=== PATIENT | female | born 1995 | race American Indian/Alaskan Native ===

== ENCOUNTER 2016-12-03 21:03 | Inpatient (IN) | payer OTHER ==
[2016-12-03 22:10] LABS: Basophils % (Auto) 0.6 % (0.0-1.8); Eosinophils % (Auto) 1.1 % (0.0-4.3); Hematocrit 41.7 % (30.3-42.9); Hemoglobin 13.5 gm/dl (10.1-14.3); Mean Corpuscular HGB Conc 32 % (30-34); Mean Corpuscular Hemoglobin 29 pg (28-32); Mean Corpuscular Volume 89 fl (79-97); Platelet Count 243 K/mm3 (140-440)
[2016-12-03 22:24] LABS: Anion Gap 19 mmol/L; Blood Urea Nitrogen 10 mg/dL (7-17); Calcium 9.1 mg/dL (8.4-10.2); Carbon Dioxide 27 mmol/L (22-30); Chloride 98.2 mmol/L (98-107); Glucose 105 mg/dL (65-100); Potassium 3.9 mmol/L (3.6-5.0); Sodium 140 mmol/L (137-145)
--- NOTE | 2016-12-03 23:12 | Cat Scan Report ---
FINAL REPORT PROCEDURE: CT HEAD/BRAIN WO CON TECHNIQUE: Computerized tomography of the head was performed without contrast material. HISTORY: Headache/confusion COMPARISON: No prior studies are available for comparison. FINDINGS: Skull and scalp: Normal. Paranasal sinuses: Normal. Ventricles and subarachnoid spaces: Normal. Cerebrum: No evidence of hemorrhage, acute infarction or mass . Cerebellum and brainstem: No evidence of hemorrhage, acute infarction or mass. Vasculature: Normal. Comments: None. IMPRESSION: Normal Examination
[2016-12-04 00:24] LABS: Bacteria,Urine 1+ /HPF (Negative); Bilirubin,Urine NEG (Negative); Blood,Urine NEG (Negative); Ketones,Urine TR mg/dL (Negative); Leukocyte Esterase,Urine MOD (Negative); Mucus,Urine 3+ /HPF; Nitrite,Urine NEG (Negative); Urobilinogen,Urine < 2.0 mg/dL (<2.0)
[2016-12-04] MEDS ORDERED: FIORICET PO ONE (01:13)
[2016-12-04 01:16] LABS: Urine Drugs of Abuse Note Disclamer
[2016-12-04] MEDS ORDERED: ZOFRAN IV ONE (01:21)
--- NOTE | 2016-12-04 01:21 | Emergency Department Report ---
HPI - General Chief Complaint: Headache Time Seen by Provider: 12/04/16 01:03 - HPI HPI: Room 5 The patient is a 21-year-old female presenting with a chief complaint of headache and altered mental status. The patient is very slow to respond and appears disorganized. The patient admits to fever chills headaches nausea and vomiting. Patient does not offer many details about her symptom was states they 've been present for several days. Patient denies any psychiatric history or illicit drug use. The patient gives her headache score of 20/10. The patient is oriented to self, place and date but is extremely slow in her responses. Location: Head, mental status Duration: [see above] Quality: Headache Severity: 20/10 Modifying factors: [see above] Context: [see above] Mode of transportation: The patient states she drove herself to the emergency department ED Past Medical Hx - Past Medical History Previous Medical History?: No - Surgical History Past Surgical History?: No - Family History Family history: no significant - Social History Smoking Status: Never Smoker Substance Use Type: None (denies illicit drug use) - Medications Home Medications: Home Medications Medication Instructions Recorded Confirmed Last Taken Type No Known Home Medications [No 12/04/16 12/04/16 Unknown History Reported Home Medications] ED Review of Systems ROS: Stated complaint: HEADACHE Other details as noted in HPI Comment: All other systems reviewed and negative Constitutional: chills, fever (subjective) Eyes: denies: eye pain, eye discharge, vision change ENT: denies: ear pain, throat pain Respiratory: denies: cough, shortness of breath, wheezing Cardiovascular: denies: chest pain, palpitations Endocrine: no symptoms reported Gastrointestinal: nausea, vomiting Genitourinary: denies: urgency, dysuria, discharge Musculoskeletal: denies: back pain, joint swelling, arthralgia Skin: denies: rash, lesions Neurological: headache Psychiatric: denies: anxiety, depression Hematological/Lymphatic: denies: easy bleeding, easy bruising Physical Exam - Physical Exam Vital Signs: Vital Signs 12/03/16 12/03/16 21:19 23:57 Temperature 98.1 F Pulse Rate 76 69 Respiratory 18 16 Rate Blood Pressure 129/86 Blood Pressure 111/70 [Left] O2 Sat by Pulse 97 98 Oximetry Physical Exam: GENERAL: The patient is well-developed well-nourished female lying on stretcher not appearing to be in acute distress but slow to respond. [] HEENT: Normocephalic. Atraumatic. Extraocular motions are intact. Patient has moist mucous membranes. NECK: Supple. No meningitic signs are noted. Trachea midline. There is no nuchal rigidity CHEST/LUNGS: Clear to auscultation. There is no respiratory distress noted. HEART/CARDIOVASCULAR: Regular. There is no tachycardia. There is no gallop rub or murmur. ABDOMEN: Abdomen is soft, nontender. Patient has normal bowel sounds. There is no abdominal distention. SKIN: There is no rash. There is no edema. There is no diaphoresis. NEURO: The patient is awake and oriented but slow to respond. The patient is cooperative. The patient has no focal neurologic deficits. The patient has normal speech but delayed in her responses. Cranial nerves II through XII grossly intact, no drift, stove installer equal bilaterally. Moves all extremities well. Normal sensation throughout MUSCULOSKELETAL: There is no evidence of acute injury. ED Course Vital Signs 12/03/16 12/03/16 21:19 23:57 Temperature 98.1 F Pulse Rate 76 69 Respiratory 18 16 Rate Blood Pressure 129/86 Blood Pressure 111/70 [Left] O2 Sat by Pulse 97 98 Oximetry ED Medical Decision Making - Lab Data Result diagrams: 12/03/16 21:51 12/03/16 21:51 Laboratory Tests 12/03/16 12/03/16 12/03/16 21:51 21:51 23:49 WBC 8.0 RBC 4.70 Hgb 13.5 Hct 41.7 MCV 89 MCH 29 MCHC 32 RDW 14.0 Plt Count 243 Lymph % (Auto) 13.2 L [place] % (Auto) 6.6 Eos % (Auto) 1.1 Baso % (Auto) 0.6 Lymph # 1.1 L [place] # 0.5 Eos # 0.1 Baso # 0.0 Seg Neutrophils % 78.5 H Seg Neutrophils # 6.3 Sodium 140 Potassium 3.9 Chloride 98.2 Carbon Dioxide 27 Anion Gap 19 BUN 10 Creatinine 0.8 Estimated GFR > 60 BUN/Creatinine Ratio 12.50 Glucose 105 H Calcium 9.1 Urine Color Yellow Urine Turbidity Slightly-cloudy Urine pH 6.0 Ur Specific [place] 1.021 Urine Protein 30 mg/dl Urine Glucose (UA) Neg Urine Ketones Tr Urine Blood Neg Urine Nitrite Neg Urine Bilirubin Neg Urine Urobilinogen < 2.0 Ur Leukocyte Esterase Mod Urine WBC (Auto) 9.0 H Urine RBC (Auto) 2.0 U Epithel Cells (Auto) 8.0 Urine Bacteria (Auto) 1+ Urine Mucus 3+ Urine HCG, Qual Negative Urine Opiates Screen Urine Methadone Screen Ur Barbiturates Screen Ur Phencyclidine Scrn Ur Amphetamines Screen U Benzodiazepines Scrn Urine Cocaine Screen U Marijuana (THC) Screen Drugs of Abuse Note 12/03/16 23:49 WBC RBC Hgb Hct MCV MCH MCHC RDW Plt Count Lymph % (Auto) [place] % (Auto) Eos % (Auto) Baso % (Auto) Lymph # [place] # Eos # Baso # Seg Neutrophils % Seg Neutrophils # Sodium Potassium Chloride Carbon Dioxide Anion Gap BUN Creatinine Estimated GFR BUN/Creatinine Ratio Glucose Calcium Urine Color Urine Turbidity Urine pH Ur Specific [place] Urine Protein Urine Glucose (UA) Urine Ketones Urine Blood Urine Nitrite Urine Bilirubin Urine Urobilinogen Ur Leukocyte Esterase Urine WBC (Auto) Urine RBC (Auto) U Epithel Cells (Auto) Urine Bacteria (Auto) Urine Mucus Urine HCG, Qual Urine Opiates Screen Presumptive negative Urine Methadone Screen Presumptive negative Ur Barbiturates Screen Presumptive negative Ur Phencyclidine Scrn Presumptive negative Ur Amphetamines Screen Presumptive negative U Benzodiazepines Scrn Presumptive negative Urine Cocaine Screen Presumptive negative U Marijuana (THC) Screen Presumptive negative Drugs of Abuse Note Disclamer - Radiology Data Radiology results: report reviewed (CT head), image reviewed (CT head) CT head (read by radiologist)-normal examination - Differential Diagnosis ICH, intracranial mass, multiple sclerosis, substance abuse, Critical care attestation.: If time is entered above; I have spent that time in minutes in the direct care of this critically ill patient, excluding procedure time. ED Disposition Clinical Impression: Altered mental status, UTI (urinary tract infection) Disposition: OP ADMITTED IP TO THIS HOSP Is pt being admited?: Yes Does the pt Need Aspirin: Yes Condition: Fair Referrals: PRIMARY CARE, [Primary Care Provider] - 3-5 Days Time of Disposition: 02:06 (hospitalist paged)
[2016-12-04] MEDS ORDERED: BACTRIM DS PO ONE (02:07)
--- NOTE | 2016-12-04 07:47 | Event Note ---
Date: 12/04/16 See H/p in reports AMS Psychosis???
--- NOTE | 2016-12-04 10:05 | History and Physical Report ---
CHIEF COMPLAINT: 1. Altered mental status. 2. Headache. HISTORY OF PRESENT ILLNESS: A 21-year-old -[place] female not talking and states she does not want to talk about it. The patient appears to be depressed. No psychiatric history or illicit drug history. The patient is very disorganized. Does not offer any details about her symptoms. She stated that her headache is 20 over 10. Otherwise, no positive history. PAST MEDICAL HISTORY: None. PAST SURGICAL HISTORY: None. FAMILY HISTORY: Non-significant. SOCIAL HISTORY: Does not smoke. CURRENT MEDICATIONS: None. REVIEW OF SYSTEMS: Could not be done because the patient does not wanting to talk. The patient stated she does not want to talk about it, but does not specify what she does not want to talk about. PHYSICAL EXAMINATION: GENERAL: Young female, cooperative during examination. VITAL SIGNS: Temperature 98.1, pulse 76, respirations 18, blood pressure 129/86, and sats are 97%. HEENT: Unremarkable. Pupils equal and reactive. NECK: Supple. No lymphadenopathy. No thyromegaly. LUNGS: Clear to auscultation and percussion. Good air entry. CARDIOVASCULAR: S1 and S2 heard. No gallop. No murmur. No rub. Apical impulse in left fifth intercostal space and midclavicular line. ABDOMEN: Soft and benign. No hepatosplenomegaly. No guarding. No rigidity. Hernial orifices are normal. EXTREMITIES: Good pedal pulses. No pedal edema. CENTRAL NERVOUS SYSTEM: Alert, but not very interested about talking; not talking at all. LABORATORY DATA: Labs are normal except for urine having white blood cells of 9. Glucose is 105. ASSESSMENT AND PLAN: 1. Altered mental status, etiology unclear. The patient may be very depressed and disorganized. Mental health consult requested. 2. Urinary tract infection. The patient put on Macrobid 100 mg twice a day. 3. Deep venous thrombosis prophylaxis, Lovenox 40 mg subtherapeutic. [facility]# [id number] VSM/NTS
[2016-12-04] MEDS: MACROBID PO SCH ×2 (10:37→22:26)
--- NOTE | 2016-12-04 14:32 | Admit Criteria Form ---
Admission Criteria Documentation: MENTAL STATUS CHANGE Clinical Indications for Inpatient Care (Place 'X' for any and all applicable criteria): Ongoing inpatient care may be needed for 1 or more of the following(1)(2)(3)(5)( 6): [X ]I. Suspected serious etiology (eg, medical disorder, HOST AND HOSTESS event) of altered mental status [ ]II. Danger to self or others not manageable at lower level of care [ ]III. Grave disability (eg, inability to perform self care necessary at lower level of care) [ ]IV. Agitation or inappropriate behavior interfering with care for primary condition (eg, attempting to discontinue lines or drains prematurely, unable to cooperate with respiratory care) [ ]V. Delirium [A] [D][E] as described by 1 or more of the following(26): [ ]a) Delirium due to alcohol or sedative [F] withdrawal [ ]b) Delirium of uncertain etiology that has not responded to appropriate empiric treatment [ ]c) Delirium that prevents performance of a life-sustaining function (eg, feeding or hydrating oneself) [ ]. General contraindications and/or Inappropriate clinical situations for Observational Care in patients with Mental Status Change, when ANY ONE of the following is required: [ ]a) Prediction of prolongation of LOS based on ANY ONE of the following may be considered as a contraindication for observational care 2, 3, 4, 5, 6, 7, 8, 9, 10, 11 [ ]i) Age > 65 yrs. [ ]ii) Patient arriving by ambulance [ ]iii) Patient with high acuity [ ]iv) Patient requiring vital sign monitoring [ ]v) Patient on IV medication [ ]b) Systolic blood pressures greater than or equal to 180mmHg 3, 12 [ ]c) Patient with altered mental status including delirium and other alteration of consciousness, (3) [ ]d) Patient whose discharge disposition will be to a nursing home home or rehabilitation home should not be managed in Emergency Department Observation Unit. CMS rule requires 3 days hospital stay before such placement.3,13 [ ]e) Patient with failure to thrive due to broad array of etiologies 3,16,17 [ ]f) Inability to ambulate 3,14 Extended stay beyond goal length of stay for the primary condition may be needed until ALL of the following are present(3)(5): [ ]a) Underlying medical etiology of mental status change is absent, or has been established and adequately treated [ ]b) Danger to self or others is absent or manageable at lower level of care. [ ]c) Behavior crisis management, including physical or chemical restraints, is not required or available at lower level of car [ ]d) Substance or alcohol withdrawal is absent or manageable at lower level of care. [ ]e) Behavioral symptoms (eg, agitation, somnolence, inappropriate behavior) are absent, or are manageable at lower level of care. The original [email or web address] content created by [facility] [employer] has been revised. The portions of the content which have been revised are identified through the use of italic text or in bold, and [facility] has neither reviewed nor approved the modified material. All other unmodified content is copyright [facility] [employer] Please see references footnoted in the original [facility] edition 2016 Admission Criteria Met: Yes
[2016-12-04] MEDS: TYLENOL PO PRN ×2 (15:15→22:27)
--- NOTE | 2016-12-04 20:21 | Consultation ---
History of Present Illness - Reason for Consult Consult date: 12/04/16 Reason for consult: Mental Status Evaluation Requesting physician: GLENIS MARINELLI - Chief Complaint Chief complaint: "I will be set on fire" - History of Present Psychiatric Illness The patient is a 21-year-old female presenting with a chief complaint of headache and altered mental status. Today patient is calm, disorganized and paranoid with a fixed thought process. Patient is elusive with her answers, also with a delayed response. She stated that she feel like if she walks outside she will catch "fire." Also, she states hearing voices telling her "You will be killed soon by bullets." Patient states that she may have had a cardiac arrest or stroke when she was admitted. Patient currently being treated for UTI. She states that she is "paranoid" because she believe something will happen to her. She denies SI/HI's, AVH's, depression, or a poor appetite. She stated sleep disturbance for a weeks. She denies recreational drug use or alcohol consumption (etoh). She states that she have not taken psy medication over a year. She ID'd Ammy as a medication that worked for her. Medications and Allergies Allergies Allergy/AdvReac Type Severity Reaction Status Date / Time No Known Allergies Allergy Verified 12/04/16 02:06 Home Medications Medication Instructions Recorded Confirmed Last Taken Type No Known Home Medications [No 12/04/16 12/04/16 Unknown History Reported Home Medications] Active Meds: Active Medications Acetaminophen (Tylenol) 650 mg PO Q6H PRN PRN Reason: Pain, Mild (1-3) Last Admin: 12/04/16 15:15 Dose: 650 mg Nitrofurantoin Macrocrystals (Macrobid) 100 mg PO Q12HR ALISON Last Admin: 12/04/16 10:37 Dose: 100 mg Past psychiatric history - Past Medical History Past Medical History: No medical history Past Surgical History: No surgical history - past Psychiatric treatment and history Psych: Bipolar, Schizophrenia psychiatric treatment history: Multiple inpatient settings. Denies fam psy hx. - Social History Social history: Lives alone (HS graduate) Mental Status Exam - Vital signs Last Vital Signs Temp 98.7 F 12/04/16 16:30 Pulse 62 12/04/16 16:30 Resp 16 12/04/16 16:30 BP 122/84 12/04/16 16:30 Pulse Ox 99 12/04/16 16:30 - Exam Narrative exam: ROS (+) delusional, (+) psychosis MSE: Appearance: guarded, cooperative Behavior: poor eye contact Speech: low rate and tone Mood: "I am okay at this time" Affect: flat Thought Process: tangential Thought Content: denies SI/HI's and AVH's, paranoid Motor Activity: lying in bed Cognition: a/O x3 Insight: limited Judgment: limited Results Result Diagrams: 12/03/16 21:51 12/03/16 21:51 All other labs normal. Assessment and Plan Assessment and plan: Impression: Unspecified Psychotic DO. The patient is a 21-year-old female presenting with a chief complaint of headache and altered mental status. Today patient is calm, disorganized and paranoid with a fixed thought process. Patient is elusive with her answers, also with a delayed response. She stated that she feel like if she walks outside she will catch fire. Also, she states hearing voices tell her "You will be killed soon by bullets." She denies SI/HI' s and AVH's. No distress or agitation noted per clinical staff anesthesiologist. DD: Schizoaffective DO Recommendation/Plan: Start Geodon 20 mg PO HS for psychosis. 1:1 sitter if possible to redirect patient when indicated. Will continue to follow patient until discharge.
[2016-12-04] MEDS: GEODON PO SCH (22:27)
--- NOTE | 2016-12-05 08:13 | Progress Note ---
Subjective - Reason for Consult Consult date: 12/05/16 Reason for consult: Psychiatry Follow-up - Chief Complaint Chief complaint: "I am hot" The patient is a 21-year-old female presenting with a chief complaint of headache and altered mental status. Today patient is calm and cooperative, but delusional with a tangential thought process. She states being on "fire" and will "heat up" soon. She has delayed responses and admit to racings thought at this time. I asked patient would she like to shower and she stated "No." She states its no need to shower. She could not tell me the last time she showered. She stated hearing voices, but declined to tell me what the voices are saying. She denies SI/HI's, VH's, depression or a poor appetite. She denies side effects to Geodon. Mental Status Exam - Vital signs Last Vital Signs Temp 97.6 F 12/05/16 04:12 Pulse 65 12/05/16 04:12 Resp 18 12/05/16 04:12 BP 127/80 12/05/16 04:12 Pulse Ox 98 12/05/16 04:12 - Exam Narrative exam: MSE: Appearance: guarded, cooperative Behavior: poor eye contact Speech: low rate and tone Mood: "I just feel hot" Affect: flat Thought Process: tangential Thought Content: denies SI/HI's and VH's, paranoia, delusions Motor Activity: lying in bed Cognition: a/O x3 Insight: poor Judgment: poor Assessment and Plan Impression: The patient is a 21-year-old female presenting with a chief complaint of headache and altered mental status. Today patient is calm and cooperative, but delusional with a tangential thought process. She states being on "fire" and will "heat up" soon. She has delayed responses and admit to racings thought at this time. I asked patient would she like to shower and she stated "No." She states its no need to shower. She denies SI/HI's and AVH's. Recommendation/Plan: Initiate 1013. Patient has poor insight at this time to make decisions about her care. Continue Geodon 20 mg PO HS for psychosis. Will continue to follow patient daily.
[2016-12-05] MEDS: MACROBID PO SCH ×2 (10:40→21:48)
--- NOTE | 2016-12-05 14:56 | Progress Note ---
Assessment and Plan Assessment and plan: 1. Psychiatric disorder with psychosis Psychotic, hearing voices Evaluated by psychiatry and started on Geodon Needs inpatient psychiatric treatment 2. UTI UA suggestive of UTI, urine culture obtained and started on nitrofurantoin Culture came back as contamination, will not repeat it as she is already on antibiotics Short course of nitrofurantoin 3. Obesity When mental status back to normal may need counseling 4. Discharge planning Patient medically cleared for transfer to inpatient psychiatry History Interval history: not answering all the questions, very slow; with no specific complaints Hospitalist Physical - Constitutional Vitals: Temp Pulse Resp BP Pulse Ox 98 F 75 16 118/82 99 12/05/16 12:28 12/05/16 12:28 12/05/16 12:28 12/05/16 12:12/05/16 08:00 General appearance: Present: no acute distress, obese - EENT Eyes: Present: PERRL, EOM intact. Absent: scleral icterus, conjunctival injection - Neck Neck: Present: supple. Absent: enlarged thyroid, masses or JVD - Respiratory Respiratory effort: normal Respiratory: bilateral: CTA, negative: rhonchi, wheezing - Cardiovascular Rhythm: regular Heart Sounds: Present: S1 & S2. Absent: systolic murmur - Extremities Extremities: no ischemia - Abdominal General gastrointestinal: soft, non-tender, non-distended, normal bowel sounds - Psychiatric Psychiatric: no appropriate mood/affect, no intact judgment & insight, other ( psychotic) - Neurologic Neurologic: moves all extremities Results - Labs CBC & Chem 7: 12/03/16 21:51 12/03/16 21:51 Labs: Laboratory Last Values WBC 8.0 K/mm3 (4.5-11.0) 12/03/16 21:51 RBC 4.70 M/mm3 (3.65-5.03) 12/03/16 21:51 Hgb 13.5 gm/dl (10.1-14.3) 12/03/16 21:51 Hct 41.7 % (30.3-42.9) 12/03/16 21:51 MCV 89 fl (79-97) 12/03/16 21:51 MCH 29 pg (28-32) 12/03/16 21:51 MCHC 32 % (30-34) 12/03/16 21:51 RDW 14.0 % (13.2-15.2) 12/03/16 21:51 Plt Count 243 K/mm3 (140-440) 12/03/16 21:51 Lymph % (Auto) 13.2 % (13.4-35.0) L 12/03/16 21:51 [place] % (Auto) 6.6 % (0.0-7.3) 12/03/16 21:51 Eos % (Auto) 1.1 % (0.0-4.3) 12/03/16 21:51 Baso % (Auto) 0.6 % (0.0-1.8) 12/03/16 21:51 Lymph # 1.1 K/mm3 (1.2-5.4) L 12/03/16 21:51 [place] # 0.5 K/mm3 (0.0-0.8) 12/03/16 21:51 Eos # 0.1 K/mm3 (0.0-0.4) 12/03/16 21:51 Baso # 0.0 K/mm3 (0.0-0.1) 12/03/16 21:51 Seg Neutrophils % 78.5 % (40.0-70.0) H 12/03/16 21:51 Seg Neutrophils # 6.3 K/mm3 (1.8-7.7) 12/03/16 21:51 Sodium 140 mmol/L (137-145) 12/03/16 21:51 Potassium 3.9 mmol/L (3.6-5.0) 12/03/16 21:51 Chloride 98.2 mmol/L (98-107) 12/03/16 21:51 Carbon Dioxide 27 mmol/L (22-30) 12/03/16 21:51 Anion Gap 19 mmol/L 12/03/16 21:51 BUN 10 mg/dL (7-17) 12/03/16 21:51 Creatinine 0.8 mg/dL (0.7-1.2) 12/03/16 21:51 Estimated GFR > 60 ml/min 12/03/16 21:51 BUN/Creatinine Ratio 12.50 % 12/03/16 21:51 Glucose 105 mg/dL (65-100) H 12/03/16 21:51 Calcium 9.1 mg/dL (8.4-10.2) 12/03/16 21:51 Urine Color Yellow (Yellow) 12/03/16 23:49 Urine Turbidity Slightly-cloudy (Clear) 12/03/16 23:49 Urine pH 6.0 (5.0-7.0) 12/03/16 23:49 Ur Specific [place] 1.021 (1.003-1.030) 12/03/16 23:49 Urine Protein 30 mg/dl mg/dL (Negative) 12/03/16 23:49 Urine Glucose (UA) Neg mg/dL (Negative) 12/03/16 23:49 Urine Ketones Tr mg/dL (Negative) 12/03/16 23:49 Urine Blood Neg (Negative) 12/03/16 23:49 Urine Nitrite Neg (Negative) 12/03/16 23:49 Urine Bilirubin Neg (Negative) 12/03/16 23:49 Urine Urobilinogen < 2.0 mg/dL (<2.0) 12/03/16 23:49 Ur Leukocyte Esterase Mod (Negative) 12/03/16 23:49 Urine WBC (Auto) 9.0 /HPF (0.0-6.0) H 12/03/16 23:49 Urine RBC (Auto) 2.0 /HPF (0.0-6.0) 12/03/16 23:49 U Epithel Cells (Auto) 8.0 /HPF (0-13.0) 12/03/16 23:49 Urine Bacteria (Auto) 1+ /HPF (Negative) 12/03/16 23:49 Urine Mucus 3+ /HPF 12/03/16 23:49 Urine HCG, Qual Negative (Negative) 12/03/16 23:49 Urine Opiates Screen Presumptive negative 12/03/16 23:49 Urine Methadone Screen Presumptive negative 12/03/16 23:49 Ur Barbiturates Screen Presumptive negative 12/03/16 23:49 Ur Phencyclidine Scrn Presumptive negative 12/03/16 23:49 Ur Amphetamines Screen Presumptive negative 12/03/16 23:49 U Benzodiazepines Scrn Presumptive negative 12/03/16 23:49 Urine Cocaine Screen Presumptive negative 12/03/16 23:49 U Marijuana (THC) Screen Presumptive negative 12/03/16 23:49 Drugs of Abuse Note Disclamer 12/03/16 23:49
[2016-12-05] MEDS: GEODON PO SCH (21:48)
[2016-12-06] MEDS: MACROBID PO SCH (11:30)
--- NOTE | 2016-12-06 12:47 | Progress Note ---
Subjective - Reason for Consult Consult date: 12/06/16 Reason for consult: psychiatric follow up - Chief Complaint Chief complaint: "I can't go outside" The patient is a 21-year-old female who presented to the hospital with a chief complaint of headache and altered mental status. She has delayed responses and at times, no response. She attempted to ask something but was not understood. She then stated, "I don't know how to say it." She is not attending to her hygiene. Staff reports that she is getting up to urinate and that she is eating. She denies SI/HI's. She declined to speak further. Mental Status Exam - Vital signs Last Vital Signs Temp 98.6 F 12/06/16 08:00 Pulse 58 L 12/06/16 08:00 Resp 20 12/06/16 08:00 BP 113/73 12/06/16 08:00 Pulse Ox 99 12/06/16 08:00 - Exam Narrative exam: Appearance: guarded, minimally cooperative Behavior: poor eye contact Speech: low rate and tone Mood: "I don't know" Affect: flat Thought Process: limited in scope and understanding Thought Content: she mentioned not being able to go outside. bizarre statement. Unable to determine suicidality or homicidality Motor Activity: lying in bed. Psychomotor retardation Cognition: She is alert Insight: poor Judgment: poor Assessment and Plan Impression: Psychosis affecting her ability to care for herself Recommendation/Plan: Continue 1013 and transfer to inpatient psychiatric facility. Patient has poor insight at this time to make decisions about her care. Continue Geodon 20 mg PO HS for psychosis. Will continue to follow patient daily.
--- NOTE | 2016-12-06 13:57 | Progress Note ---
Assessment and Plan Assessment and plan: 1. Psychiatric disorder with psychosis Psychotic, hearing voices Evaluated by psychiatry and started on Geodon Needs inpatient psychiatric treatment 2. UTI UA suggestive of UTI, urine culture obtained and started on nitrofurantoin Culture came back as contamination, will not repeat it as she is already on antibiotics Short course of nitrofurantoin 3. Obesity When mental status back to normal may need counseling 4. Discharge planning Patient medically cleared for transfer to inpatient psychiatry 12/05/16 History Interval history: no change, refusing to talk Hospitalist Physical - Constitutional Vitals: Temp Pulse Resp BP Pulse Ox 98.6 F 58 L 20 113/73 99 12/06/16 08:00 12/06/16 08:00 12/06/16 08:00 12/06/16 08:00 12/06/16 08:00 General appearance: Present: no acute distress, obese - EENT Eyes: Present: PERRL, EOM intact - Neck Neck: Present: supple. Absent: enlarged thyroid, masses or JVD - Respiratory Respiratory effort: normal Respiratory: bilateral: CTA, negative: rhonchi, wheezing - Cardiovascular Rhythm: regular Heart Sounds: Present: S1 & S2. Absent: systolic murmur - Extremities Extremities: no ischemia - Abdominal General gastrointestinal: soft, non-tender, non-distended, normal bowel sounds - Psychiatric Psychiatric: no appropriate mood/affect, no intact judgment & insight - Neurologic Neurologic: moves all extremities Results - Labs CBC & Chem 7: 12/03/16 21:51 12/03/16 21:51 Labs: Laboratory Last Values WBC 8.0 K/mm3 (4.5-11.0) 12/03/16 21:51 RBC 4.70 M/mm3 (3.65-5.03) 12/03/16 21:51 Hgb 13.5 gm/dl (10.1-14.3) 12/03/16 21:51 Hct 41.7 % (30.3-42.9) 12/03/16 21:51 MCV 89 fl (79-97) 12/03/16 21:51 MCH 29 pg (28-32) 12/03/16 21:51 MCHC 32 % (30-34) 12/03/16 21:51 RDW 14.0 % (13.2-15.2) 12/03/16 21:51 Plt Count 243 K/mm3 (140-440) 12/03/16 21:51 Lymph % (Auto) 13.2 % (13.4-35.0) L 12/03/16 21:51 [place]ites[place] % (Auto) 6.6 % (0.0-7.3) 12/03/16 21:51 Eos % (Auto) 1.1 % (0.0-4.3) 12/03/16 21:51 Baso % (Auto) 0.6 % (0.0-1.8) 12/03/16 21:51 Lymph # 1.1 K/mm3 (1.2-5.4) L 12/03/16 21:51 Whiteside # 0.5 K/mm3 (0.0-0.8) 12/03/16 21:51 Eos # 0.1 K/mm3 (0.0-0.4) 12/03/16 21:51 Baso # 0.0 K/mm3 (0.0-0.1) 12/03/16 21:51 Seg Neutrophils % 78.5 % (40.0-70.0) H 12/03/16 21:51 Seg Neutrophils # 6.3 K/mm3 (1.8-7.7) 12/03/16 21:51 Sodium 140 mmol/L (137-145) 12/03/16 21:51 Potassium 3.9 mmol/L (3.6-5.0) 12/03/16 21:51 Chloride 98.2 mmol/L (98-107) 12/03/16 21:51 Carbon Dioxide 27 mmol/L (22-30) 12/03/16 21:51 Anion Gap 19 mmol/L 12/03/16 21:51 BUN 10 mg/dL (7-17) 12/03/16 21:51 Creatinine 0.8 mg/dL (0.7-1.2) 12/03/16 21:51 Estimated GFR > 60 ml/min 12/03/16 21:51 BUN/Creatinine Ratio 12.50 % 12/03/16 21:51 Glucose 105 mg/dL (65-100) H 12/03/16 21:51 Calcium 9.1 mg/dL (8.4-10.2) 12/03/16 21:51 Urine Color Yellow (Yellow) 12/03/16 23:49 Urine Turbidity Slightly-cloudy (Clear) 12/03/16 23:49 Urine pH 6.0 (5.0-7.0) 12/03/16 23:49 Ur Specific [place] 1.021 (1.003-1.030) 12/03/16 23:49 Urine Protein 30 mg/dl mg/dL (Negative) 12/03/16 23:49 Urine Glucose (UA) Neg mg/dL (Negative) 12/03/16 23:49 Urine Ketones Tr mg/dL (Negative) 12/03/16 23:49 Urine Blood Neg (Negative) 12/03/16 23:49 Urine Nitrite Neg (Negative) 12/03/16 23:49 Urine Bilirubin Neg (Negative) 12/03/16 23:49 Urine Urobilinogen < 2.0 mg/dL (<2.0) 12/03/16 23:49 Ur Leukocyte Esterase Mod (Negative) 12/03/16 23:49 Urine WBC (Auto) 9.0 /HPF (0.0-6.0) H 12/03/16 23:49 Urine RBC (Auto) 2.0 /HPF (0.0-6.0) 12/03/16 23:49 U Epithel Cells (Auto) 8.0 /HPF (0-13.0) 12/03/16 23:49 Urine Bacteria (Auto) 1+ /HPF (Negative) 12/03/16 23:49 Urine Mucus 3+ /HPF 12/03/16 23:49 Urine HCG, Qual Negative (Negative) 12/03/16 23:49 Urine Opiates Screen Presumptive negative 12/03/16 23:49 Urine Methadone Screen Presumptive negative 12/03/16 23:49 Ur Barbiturates Screen Presumptive negative 12/03/16 23:49 Ur Phencyclidine Scrn Presumptive negative 12/03/16 23:49 Ur Amphetamines Screen Presumptive negative 12/03/16 23:49 U Benzodiazepines Scrn Presumptive negative 12/03/16 23:49 Urine Cocaine Screen Presumptive negative 12/03/16 23:49 U Marijuana (THC) Screen Presumptive negative 12/03/16 23:49 Drugs of Abuse Note Disclamer 12/03/16 23:49
[2016-12-06 15:21] VITALS: BP 111/68
--- NOTE | 2016-12-06 16:48 | Discharge Summary ---
Providers - Providers Date of Admission: 12/04/16 02:10 Date of discharge: 12/06/16 Attending physician: SHAUN PALACIOS 12/04/16 07:47 Consult to Mental Health [CONS] Routine Reason For Exam: AMS Place consult to:: MENTAL HEALTH Notified:: TR Phone number called:: IN HOUSE Was contact made?: Yes If yes, spoke with:: TR Time called:: 08:49 Primary care physician: [employer] Hospitalization Reason for admission: change in mental status Condition: Stable Pertinent studies: CT head Hospital course: Patient is a 21 years old female brought to the hospital by her family for change in mental status; she was refusing to talk. CT of the head revealed no acute abnormalities. Other medical issues have been ruled out. Psychiatry was consulted and their evaluation revealed a disorganized and paranoid with fixed thought process patient, who was also hearing voices and had sleep disturbances. She was started on Geodon and will be transferred to inpatient psychiatry for further management. Discharge diagnosis: 1. Psychiatric disorder with psychosis 2. UTI - will finish a short course of nitrofurantoin 3. Obesity Disposition: DC/TX PSY HOSP/PSY UNIT Time spent for discharge: 35 min Core Measure Documentation - Palliative Care Palliative Care/ Comfort Measures: Not Applicable - Core Measures Any of the following diagnoses?: none Exam - Constitutional Vitals: Temp Pulse Resp BP Pulse Ox 98.6 F 60 20 111/68 98 12/06/16 15:20 12/06/16 15:20 12/06/16 15:20 12/06/16 15:20 12/06/16 15:20 Plan Activity: advance as tolerated Diet: low cholesterol, low salt Follow up with: PRIMARY CARE, [Primary Care Provider] - 3-5 Days Prescriptions: Nitrofurantoin [place]/M-Cryst [Macrobid CAP] 100 mg PO Q12HR #6 capsule
== END 2016-12-06 18:10 | DRG 885 ==
LOC: ED 21:03 → 3A 12-04 02:10
PROVIDERS: ADMIT Internal Medicine; ATTEND Internal Medicine
DX: F29 Unspecified psychosis not due to a substance or known physiological condition (principal); N39.0 Urinary tract infection, site not specified; Z60.2 Problems related to living alone; R51 Headache; F31.9 Bipolar disorder, unspecified; E66.9 Obesity, unspecified; Z68.35 Body mass index [BMI] 35.0-35.9, adult
CPT/HCPCS: 36415; 70450; 80048; 80307; 81001; 81025; 85025; 87040; 87086; 96374; J2405